=== PATIENT | female | born 1960 | race Caucasian/White ===

== ENCOUNTER 2018-12-15 16:38 | Emergency (ER) | payer MEDICARE ==
--- NOTE | 2018-12-15 17:13 | ED ---
General Adult HPI - General Chief complaint: Psychiatric Symptoms Stated complaint: Petition Time Seen by Provider: 12/15/18 17:00 Source: patient, RN notes reviewed, old records reviewed Mode of arrival: ambulatory Limitations: no limitations - History of Present Illness Initial comments: 58-year-old female presenting for psychiatric evaluation. Patient is under court order petitioned. She has history of paranoid schizophrenia. Petition was completed indicating that the patient has not bathed in weeks to months, she is not eating or drinking well, she is not taking care of her basic needs. Uncertain if she is compliant with her medication. 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 She has no physical complaints. She denies suicidal or homicidal ideation. - Related Data Home Medications Medication Instructions Recorded Confirmed Benztropine Mesylate [Cogentin] 0.5 mg PO DAILY 12/15/18 12/15/18 Minocycline HCl [Minocin] 100 mg PO DAILY 12/15/18 12/15/18 clonazePAM [KlonoPIN] 0.5 mg PO DAILY PRN 12/15/18 12/15/18 fluPHENAZine [Prolixin 1MG] 1 mg PO DAILY 12/15/18 12/15/18 traZODone HCL 50 mg PO HS 12/15/18 12/15/18 Allergies Allergy/AdvReac Type Severity Reaction Status Date / Time No Known Allergies Allergy Verified 12/15/18 18:11 Review of Systems ROS Statement: Those systems with pertinent positive or pertinent negative responses have been documented in the HPI. ROS Other: All systems not noted in ROS Statement are negative. Past Medical History Past Medical History: No Reported History History of Any Multi-Drug Resistant Organisms: None Reported Past Surgical History: No Surgical Hx Reported Past Psychological History: Depression, Schizoaffective Disorder, Schizophrenia Smoking Status: Never smoker Past Alcohol Use History: None Reported Past Drug Use History: None Reported General Exam Limitations: no limitations General appearance: alert, in no apparent distress Head exam: Present: atraumatic, normocephalic Eye exam: Present: normal appearance, PERRL ENT exam: Present: mucous membranes dry Neck exam: Present: normal inspection. Absent: tenderness, meningismus Respiratory exam: Present: normal lung sounds bilaterally. Absent: respiratory distress Cardiovascular Exam: Present: regular rate, normal rhythm GI/Abdominal exam: Present: soft. Absent: distended, tenderness, guarding Neurological exam: Present: alert, oriented X3. Absent: motor sensory deficit Psychiatric exam: Absent: homicidal ideation, suicidal ideation Skin exam: Present: warm, rash (Seborrheic dermatitis) Course Vital Signs 12/15/18 12/15/18 12/16/18 16:56 17:25 03:31 Temperature 97.9 F 98.1 F Pulse Rate 112 H 94 77 Respiratory 16 16 18 Rate Blood Pressure 141/90 121/79 105/62 O2 Sat by Pulse 97 100 96 Oximetry 12/16/18 12/16/18 06:11 08:49 Temperature 98.6 F Pulse Rate 77 87 Respiratory 18 18 Rate Blood Pressure 105/62 111/67 O2 Sat by Pulse 97 97 Oximetry - Reevaluation(s) Reevaluation #1: 12/16/18 00:47 I did complete a clinical certification on this patient for the need for inpatient psychiatric evaluation and treatment. Patient is resting comfortably in the emergency department awaiting final disposition. Medical Decision Making - Medical Decision Making Patient's care was signed out to oncoming physician. Review the medical record does appear that this patient was transferred to psychiatric facility. - Lab Data Result diagrams: 12/15/18 22:10 12/15/18 22:10 Lab Results 12/15/18 12/15/18 12/16/18 Range/Units 22:10 22:10 03:30 WBC 6.4 (3.8-10.6) k/uL RBC 4.71 (3.80-5.40) m/uL Hgb 14.2 (11.4-16.0) gm/dL Hct 42.8 (34.0-46.0) % MCV 90.8 (80.0-100.0) fL MCH 30.1 (25.0-35.0) pg MCHC 33.2 (31.0-37.0) g/dL RDW 12.7 (11.5-15.5) % Plt Count 198 (150-450) k/uL Sodium 142 (137-145) mmol/L Potassium 4.1 (3.5-5.1) mmol/L Chloride 104 (98-107) mmol/L Carbon Dioxide 29 (22-30) mmol/L Anion Gap 9 mmol/L BUN 16 (7-17) mg/dL Creatinine 0.70 (0.52-1.04) mg/dL Est GFR (CKD-EPI)AfAm >90 (>60 ml/min/1.73 sqM) Est GFR (CKD-EPI)NonAf >90 (>60 ml/min/1.73 sqM) Glucose 98 (74-99) mg/dL Calcium 10.4 H (8.4-10.2) mg/dL Total Bilirubin 0.7 (0.2-1.3) mg/dL AST 28 (14-36) U/L ALT 15 (9-52) U/L Alkaline Phosphatase 55 (38-126) U/L Total Protein 7.7 (6.3-8.2) g/dL Albumin 5.0 (3.5-5.0) g/dL Urine Color Urine Appearance (Clear) Urine pH (5.0-8.0) Ur Specific [place] (1.001-1.035) Urine Protein (Negative) Urine Glucose (UA) (Negative) Urine Ketones (Negative) Urine Blood (Negative) Urine Nitrite (Negative) Urine Bilirubin (Negative) Urine Urobilinogen (<2.0) mg/dL Ur Leukocyte Esterase (Negative) Urine RBC (0-5) /hpf Urine WBC (0-5) /hpf Ur Squamous Epith Cells (0-4) /hpf Urine Opiates Screen Not Detected (NotDetected) Ur Oxycodone Screen Not Detected (NotDetected) Urine Methadone Screen Not Detected (NotDetected) Ur Propoxyphene Screen Not Detected (NotDetected) Ur Barbiturates Screen Not Detected (NotDetected) U Tricyclic Antidepress Not Detected (NotDetected) Ur Phencyclidine Scrn Not Detected (NotDetected) Ur Amphetamines Screen Not Detected (NotDetected) U Methamphetamines Scrn Not Detected (NotDetected) U Benzodiazepines Scrn Not Detected (NotDetected) Urine Cocaine Screen Not Detected (NotDetected) U Marijuana (THC) Screen Not Detected (NotDetected) 12/16/18 Range/Units 03:30 WBC (3.8-10.6) k/uL RBC (3.80-5.40) m/uL Hgb (11.4-16.0) gm/dL Hct (34.0-46.0) % MCV (80.0-100.0) fL MCH (25.0-35.0) pg MCHC (31.0-37.0) g/dL RDW (11.5-15.5) % Plt Count (150-450) k/uL Sodium (137-145) mmol/L Potassium (3.5-5.1) mmol/L Chloride (98-107) mmol/L Carbon Dioxide (22-30) mmol/L Anion Gap mmol/L BUN (7-17) mg/dL Creatinine (0.52-1.04) mg/dL Est GFR (CKD-EPI)AfAm (>60 ml/min/1.73 sqM) Est GFR (CKD-EPI)NonAf (>60 ml/min/1.73 sqM) Glucose (74-99) mg/dL Calcium (8.4-10.2) mg/dL Total Bilirubin (0.2-1.3) mg/dL AST (14-36) U/L ALT (9-52) U/L Alkaline Phosphatase (38-126) U/L Total Protein (6.3-8.2) g/dL Albumin (3.5-5.0) g/dL Urine Color Yellow Urine Appearance Clear (Clear) Urine pH 5.0 (5.0-8.0) Ur Specific [place] 1.011 (1.001-1.035) Urine Protein Negative (Negative) Urine Glucose (UA) Negative (Negative) Urine Ketones 1+ H (Negative) Urine Blood Negative (Negative) Urine Nitrite Negative (Negative) Urine Bilirubin Negative (Negative) Urine Urobilinogen <2.0 (<2.0) mg/dL Ur Leukocyte Esterase Moderate H (Negative) Urine RBC 1 (0-5) /hpf Urine WBC 16 H (0-5) /hpf Ur Squamous Epith Cells <1 (0-4) /hpf Urine Opiates Screen (NotDetected) Ur Oxycodone Screen (NotDetected) Urine Methadone Screen (NotDetected) Ur Propoxyphene Screen (NotDetected) Ur Barbiturates Screen (NotDetected) U Tricyclic Antidepress (NotDetected) Ur Phencyclidine Scrn (NotDetected) Ur Amphetamines Screen (NotDetected) U Methamphetamines Scrn (NotDetected) U Benzodiazepines Scrn (NotDetected) Urine Cocaine Screen (NotDetected) U Marijuana (THC) Screen (NotDetected) Disposition Clinical Impression: Psychosis, Chronic schizophrenia Disposition: TRANSFER TO PSYCH HOSP/UNIT Condition: Stable Is patient prescribed a controlled substance at d/c from ED?: No Referrals: Edilson Pastrana MD [Primary Care Provider] - 1-2 days - Out of Hospital Transfer - Req. Specs Out of Hospital Transfer - Requested Specifics: Psychiatric Non-ICU (Transfer for inpatient psychiatric treatment and evaluation)
[2018-12-15 22:18] LABS: HCT 42.8 % (34.0-46.0); HGB 14.2 gm/dL (11.4-16.0); MCH 30.1 pg (25.0-35.0); MCHC 33.2 g/dL (31.0-37.0); MCV 90.8 fL (80.0-100.0); Mean Platelet Volume 6.8; Platelet Count 198 k/uL (150-450); RBC 4.71 m/uL (3.80-5.40); RDW 12.7 % (11.5-15.5); WBC 6.4 k/uL (3.8-10.6)
[2018-12-15 22:31] LABS: ALT 15 U/L (9-52); AST 28 U/L (14-36); Alkaline Phosphatase 55 U/L (38-126); Anion Gap 9 mmol/L; Blood Urea Nitrogen 16 mg/dL (7-17); Calcium 10.4 mg/dL (8.4-10.2); Carbon Dioxide 29 mmol/L (22-30); Chloride 104 mmol/L (98-107); Glucose 98 mg/dL (74-99); Potassium 4.1 mmol/L (3.5-5.1); Sodium 142 mmol/L (137-145); Total Bilirubin 0.7 mg/dL (0.2-1.3); Total Protein 7.7 g/dL (6.3-8.2)
[2018-12-16 03:32] VITALS: RESP 18
[2018-12-16 04:07] LABS: Appearance,Urine Clear (Clear); Bilirubin,Urine Negative (Negative); Blood,Urine Negative (Negative); Color,Urine Yellow; Glucose,Urine (UA) Negative (Negative); Ketones,Urine 1+ (Negative); Leukocyte Esterase,Urine Moderate (Negative); Nitrite,Urine Negative (Negative); Protein,Urine Negative (Negative); RBC,Urine 1 /hpf (0-5); Specific Gravity,Urine 1.011 (1.001-1.035); Squamous Epithelial Cell,Urine <1 /hpf (0-4); Urobilinogen,Urine <2.0 mg/dL (<2.0); WBC,Urine 16 /hpf (0-5)
[2018-12-16 04:14] LABS: Amphetamine Screen,Urine Not Detected (NotDetected); Barbiturate Screen,Urine Not Detected (NotDetected); Benzodiazepines Screen,Urine Not Detected (NotDetected); Cocaine Screen,Urine Not Detected (NotDetected); Methadone Screen, Urine Not Detected (NotDetected); Opiate Screen,Urine Not Detected (NotDetected); Oxycodone Screen, Urine Not Detected (NotDetected); Phencyclidine Screen,Urine Not Detected (NotDetected); Tricyclic Antidepressant,Urine Not Detected (NotDetected); Urn Cannabinoid Scrn Not Detected (NotDetected)
[2018-12-16 08:51] VITALS: BP 111/67; PULSE 87; TEMP 98.6
== END 2018-12-16 08:51 ==
LOC: EC 16:38
DX: F25.9 Schizoaffective disorder, unspecified (principal); F32.9 Major depressive disorder, single episode, unspecified; Z79.899 Other long term (current) drug therapy
CPT/HCPCS: 36415; 80053; 80306; 81001; 85027; 99285

== ENCOUNTER → 2022-04-07 | Outpatient (CLI) | payer MEDICARE ==
[2022-04-07 18:08] LABS: Basophils # (A) 0.04 X 10*3/uL (0.00-0.10); Basophils % (A) 0.6 %; Eosinophils # (A) 0.05 X 10*3/uL (0.04-0.35); Eosinophils % (A) 0.7 %; HCT 39.9 % (37.2-46.3); HGB 13.1 g/dL (12.0-15.0); Immature Grans, Automated 0.3 %; Lymphocytes # (A) 1.04 X 10*3/uL (0.90-5.00); Lymphocytes % (A) 15.5 %; MCH 30.6 pg (27.0-32.0); MCHC 32.8 g/dL (32.0-37.0); MCV 93.2 fL (80.0-97.0); Mean Platelet Volume 9.8 fL (9.5-12.2); Monocytes # (A) 0.51 X 10*3/uL (0.20-1.00); Monocytes % (A) 7.6 %; NRBC Per 100 WBC 0 /100 WBCS (0.0-0.0); Neutrophils # (A) 5.03 X 10*3/uL (1.80-7.70); Neutrophils % (A) 75.3 %; Platelet Count 192 X 10*3/uL (140-440); RBC 4.28 X 10*6/uL (4.10-5.20); WBC 6.69 X 10*3/uL (4.50-10.00)
[2022-04-07 18:45] LABS: African American GFR (CKD) 69.4 (60.0-200.0); Anion Gap 8.5 mmol/L (10.00-18.00); Calcium 9.3 mg/dL (8.7-10.3); Carbon Dioxide 30.5 mmol/L (20.0-27.5); Non-African American GFR(CKD) 59.9 (60.0-200.0); Potassium 4.5 mmol/L (3.5-5.5)
[2022-04-08 01:22] LABS: Appearance,Urine Turbid (Clear); Bacteria,Urine Trace /HPF (None Seen); Bilirubin,Urine Negative (Negative); Blood,Urine Large (Negative); Calcium Oxalate Crystals,Urine Present /LPF (None Seen); Color,Urine Orange (Yellow); Ketones,Urine Negative (Negative); Nitrite,Urine Negative (Negative); Specific Gravity,Urine 1.017 (1.001-1.030); Urobilinogen,Urine 0.2 (0.2,1.0)
== END | disposition home or self-care (01) ==
LOC: LABPAT 11:00
PROVIDERS: ATTEND Urology
DX: Z01.812 Encounter for preprocedural laboratory examination (principal); N20.1 Calculus of ureter
CPT/HCPCS: 80048; 81001; 85025; 87086

== ENCOUNTER 2022-04-14 12:12 | Day surgery (SDC) | payer MEDICARE ==
[2022-04-09 14:16] VITALS: BMI 20.8
[~2022-04-14 12:12] MED LIST: DEXAMETHASONE SOD PHOSPHATE 4 MG/ML 1 ML VIAL IV ONE; HYDROmorphone 0.5 MG/0.5 ML SYRINGE IVP PRN; LACTATED RINGERS 1,000 ML IV SCH; LIDOCAINE 1% (10MG/ML) FOR IV START INTRADERMA PRN; MIDAZOLAM 2 MG/2 ML VIAL IV PRN; ONDANSETRON 4 MG/2 ML VIAL IVP ONE
--- NOTE | 2022-04-14 12:35 | P.HPIHPCON ---
History of Present Illness H&P Date: 04/14/22 Chief Complaint: Left ureteral stone This is a 61-year-old male with history of a 7 mm left-sided proximal stone, status post stent insertion. Presents today for left-sided ureteroscopy with holmium laser. Discussed with her the risk of surgery which includes but not limited to bleeding, infection, injury to the ureter. Risk of anesthesia was also discussed with her. She understood all the risk and agreed to proceed Consent for Procedure: I have explained the operation/procedure to the patient, including the risks, benefits, side effects, alternative therapies (including not receiving the proposed treatment or service), the likelihood of the patient achieving his/her goals, and potential recuperation problems for the procedure/sedation/analgesia, as well as any blood products, if indicated. I also explained to the patient the risks, benefits and side effects of the alternatives, as well as the risks related to not receiving the proposed procedure, care, treatment, or services. Past Medical History Past Medical History: Asthma, Hyperlipidemia Additional Past Medical History / Comment(s): hx migraines, kidney stones, constipation, pt states "urinary infection but Dr Pastrana said not bacterial and no antibiotics needed", History of Any Multi-Drug Resistant Organisms: None Reported Past Surgical History: No Surgical Hx Reported Additional Past Surgical History / Comment(s): cystoscopy with left stent 03/17/22 at [facility] Past Anesthesia/Blood Transfusion Reactions: No Reported Reaction Smoking Status: Never smoker - Past Family History Mother Family Medical History: Cancer Father Family Medical History: Cancer Medications and Allergies Home Medications Medication Instructions Recorded Confirmed Type Benztropine Mesylate [Cogentin] 0.5 mg PO 0 12/15/18 04/09/22 History Minocycline HCl [Minocin] 100 mg PO DAILY 12/15/18 04/09/22 History ARIPiprazole [Abilify] 20 mg PO 0 04/09/22 04/09/22 History Albuterol Inhaler [Ventolin Hfa 1 puff INHALATION DIRECTED PRN 04/09/22 04/09/22 History Inhaler] traZODone HCL 100 mg PO 0 04/09/22 04/09/22 History Allergies Allergy/AdvReac Type Severity Reaction Status Date / Time No Known Allergies Allergy Verified 04/09/22 14:04 Surgical - Exam - General no distress, no pain - Eyes normal ocular movement, no pale - ENT normal nares, normal mucosa - Respiratory normal expansion, normal respiratory effort Assessment and Plan Assessment: OR for left-sided ureteroscopy, holmium laser lithotripsy, stone basketing and stent removal
--- NOTE | 2022-04-14 12:54 | XR ---
EXAMINATION TYPE: XR KUB DATE OF EXAM: 04/14/2022 Comparison: None Clinical History: 61-year-old female presurgical evaluation, N200 Findings: Left ureteral stent is present. Numerous pelvic phlebolith. A safety pin projects at the right upper pelvis. Nonobstructive bowel gas pattern. Mild stool burden. Air extends distally to the rectum. Supi ne imaging limited for assessment of free air. Impression: Left-sided ureteral stent. Numerous pelvic phleboliths. Nonobstructive bowel gas pattern.
[2022-04-14 13:05] VITALS: TEMP 98.1
[2022-04-14] MEDS ORDERED: ONDANSETRON 4 MG/2 ML VIAL IVP ONE (13:12)
[2022-04-14] MEDS ORDERED: DEXAMETHASONE SOD PHOSPHATE 4 MG/ML 1 ML VIAL IVP ONE (13:13)
[2022-04-14] MEDS ORDERED: LIDOCAINE 2% INJ 20 MG/ML (2 ML VIAL) ONE (13:43)
[2022-04-14] MEDS ORDERED: fentaNYL (PF) 50 MCG/ML 2 ML AMP ONE (13:43)
[2022-04-14] MEDS ORDERED: PROPOFOL 10 MG/ML 20 ML VIAL IV ONE (13:43)
[2022-04-14 15:02] VITALS: RESP 16
--- NOTE | 2022-04-14 15:02 | P.OP ---
Date of Procedure: 04/14/22 Preoperative Diagnosis: Left ureteral stone Postoperative Diagnosis: Same Procedure(s) Performed: Cystoscopy, left ureteroscopy, holmium laser lithotripsy, stone basketing and stent removal Implants: none Anesthesia: [place] Surgeon: Ashok Lake Estimated Blood Loss (ml): 1 Pathology: other (left ureteral stone) Condition: stable Disposition: PACU Indications for Procedure: This is a 61-year-old male with history of a 7 mm left-sided proximal stone, status post stent insertion. Presents today for left-sided ureteroscopy with holmium laser. Discussed with her the risk of surgery which includes but not limited to bleeding, infection, injury to the ureter. Risk of anesthesia was also discussed with her. She understood all the risk and agreed to proceed Operative Findings: Left-sided proximal ureteral stone Description of Procedure: Patient brought to the operating room, general anesthesia was induced. She was prepped and draped in sterile fashion and placed in dorsal lithotomy position. Attention was then carried to the left ureteral orifice, the stent was grasped and removed. Next a semirigid ureteroscope was inserted through the urethra and advanced up the left ureteral orifice. The ureteroscope was advanced all the way up to the proximal ureter which at that time a stone was encountered. Using the holmium laser the stone was fragmented into small fragments, sizable frag ments were removed and sent to for analysis. At this time pullback ureteroscopy was performed showed no injury to the ureter or any sizable fragments. As ureteroscope was withdrawn and a sensor was advanced through. Next under fluoroscopy 1113 [place] access sheath was passed over the wire and into the proximal ureter. Next a flexible ureteroscope was inserted through the access sheath, renoscopy was performed which showed no additional stones within the kidney. pull back ureteroscopy was performed which showed no injury to the ureter or any sizable fragments. There was no injury to the ureter or ureteral edema thus a stent was not placed. The bladder was emptied at the end of the case. Patient tolerated the procedure well and was taken to recovery in stable condition
[2022-04-14 15:52] VITALS: BP 153/79; PULSE 65
--- NOTE | 2022-04-14 18:24 | FL ---
EXAMINATION TYPE: FL guidance operating room DATE OF EXAM: 04/14/2022 FLUOROSCOPY Fluoroscopy time of 12 seconds was used during urologic intervention for left ureteral stone. 1 i mage/s document/s the procedure.
== END 2022-04-14 16:33 | disposition home or self-care (01) ==
LOC: OR 12:12
PROVIDERS: ATTEND Urology
DX: N20.2 Calculus of kidney with calculus of ureter (principal); E78.5 Hyperlipidemia, unspecified; J45.909 Unspecified asthma, uncomplicated; G43.909 Migraine, unspecified, not intractable, without status migrainosus; F25.9 Schizoaffective disorder, unspecified; K59.00 Constipation, unspecified; Z46.6 Encounter for fitting and adjustment of urinary device; F32.9 Major depressive disorder, single episode, unspecified; Z87.898 Personal history of other specified conditions; Z80.9 Family history of malignant neoplasm, unspecified
CPT/HCPCS: 52353; 82365; 74018; C1769; J1100; J0690; J2405; J3010; J2704; J2001

== ENCOUNTER → 2023-01-30 | Day surgery (SDC) | payer MEDICARE ==
--- NOTE | 2023-01-30 12:22 | MM ---
Reason for Exam: Post Procedure Mammogram. Risk Values: Bess 5 year model risk: 1.1%. NCI Lifetime model risk: 4.3%. Tissue Density: Right: The breast tissue is heterogeneously dense. This may lower the sensitivity of mammography. Overall Assessment: Post procedure mammogram for marker placement Management: Post Mammogram for Matthew Placement of the right breast. Electronically signed and approved by: Erick Aguilar DO
--- NOTE | 2023-01-30 12:23 | USB ---
Risk Values: Bess 5 year model risk: 1.1%. NCI Lifetime model risk: 4.3%. Pathology Description: Location: upper outer quadrant, axillary tail. Marker Left Behind. Needle Type: Bard 14g x 10cm Cores: 2 this is the larger lesion. Pathology Results: Results pending. Electronically signed and approved by: Erick Aguilar DO
--- NOTE | 2023-02-05 09:44 | USB ---
Risk Values: Bess 5 year model risk: 1.3%. NCI Lifetime model risk: 5.1%. Pathology Description: Location: upper outer quadrant, axillary tail. Marker Left Behind. Needle Type: Bard 14g x 10cm Cores: 3 The procedure of ultrasound guided core biopsy was explained to the patient. Benefits, alternatives, and risks were discussed. An informed consent was then obtained. A time out was performed. The patient was placed in supine positioning for imaging and for the procedure. The overlying skin was prepped and draped in usual sterile fashion. 5 ml 1% lidocaine was used as anesthetic into the skin and subcutaneous tissue up to area of concern in the right axilla. Under ultrasound guidance, a 18-gauge biopsy gun device was used to obtain 3 core samples of suspected lymph node. Following this, a coil biopsy clip was left in the lesion. Next, Under ultrasound guidance, a 14-gauge biopsy gun device was used to obtain 2 core samples of suspected mass protruding from the skin. Following this, a butterfly biopsy clip was left in the lesion. A post procedure mammogram was performed, clip seen and correlates with the mammographic finding. The patient tolerated the procedure well without any immediate complication. The patient was discharged home in stable condition. Impression: Successful, uncomplicated ultrasound guided core biopsy of area of concern in the right breast. PATHOLOGY STATUS: Results pending. Pathology Results: Result: Malignant. A. RIGHT AXILLA #1 LARGER, NEEDLE CORE BIOPSY: Invasive moderately differentiated ductal carcinoma (Grade 2). See Surgical Pathology Cancer Case Summary and Comment. B. RIGHT AXILLA #2, SMALLER, NEEDLE CORE BIOPSY: Invasive moderately differentiated ductal carcinoma (Grade 2), focally involving lymph node tissue. See Surgical Pathology Cancer Case Summary and Comment. Overall Assessment: Malignant Management: Surgical Consultation of the right breast. Electronically signed and approved by: Erick Aguilar DO
== END ==
LOC: RADUSWWP 09:51
PROVIDERS: ATTEND Surgery
DX: R92.8 Other abnormal and inconclusive findings on diagnostic imaging of breast (principal); C50.911 Malignant neoplasm of unspecified site of right female breast
CPT/HCPCS: 88305; 88342; 88341; 77065; 19083; 19084; A4648

== ENCOUNTER → 2023-02-20 | Outpatient (CLI) | payer MEDICARE ==
[2023-02-20 09:43] VITALS: BP 128/82; PULSE 73; RESP 18; TEMP 98.2
--- NOTE | 2023-02-20 10:34 | P.GSHP ---
History of Present Illness H&P Date: 02/20/23 Chief Complaint: right breast invasive ductal cancer Alice is a 62 year old whtie female seen in consuotation for Dr. Pastrana regarding a biopsy proven right breast cancer. She underwent a bilateral mammogram on 01-01-23 which was personally reviewed with DR. Sheffield. This showed a 2.4 cm mass with adjacent adenopathy on the right axillary region of hte breast. She had a ultrasound confirming this on the same date. She had a core biopsy of the right axillary lesion and a node on 01-30-23. Pathology revealed an invasive ductal cancer, G2 ER+(91-100%), NH+ (61-70%), Her2-. She notes a lump in her right axilla since April 2020. She did not pursue that secondary to COVID at the time. She recently pursued this. She had never had surgery on her breast. She is not complaining of any trauma or infection of the breast. Caffiene: 1 cup.day nicotine: none chocolate: daily Family History: mother: breast cancer at 76 father: cancer ? type two brothers with prostate cancer paternal grandmother: tumor on her hip cancer Hormonal History: menarche: 12 G0 menopause: 48 hormones: none BCP: used them for about 6 years Surgical History: kidney stone Medical History: skizophrenia (diagnosed since 31, lives independently) depression Social History: nicotine: none alcohol: occasional drugs: none - Constitutional Constitutional: Denies chills, Denies fever - EENT Eyes: denies blurred vision, denies pain Ears: deny: decreased hearing, tinnitus Ears, nose, mouth and throat: Denies headache, Denies sore throat - Breasts Breasts: bilateral: as per HPI - Cardiovascular Cardiovascular: Denies chest pain, Denies shortness of breath - Respiratory Respiratory: Denies cough, Denies 7 - Gastrointestinal Gastrointestinal: Denies abdominal pain, Denies diarrhea, Denies nausea, Denies vomiting - Genitourinary (Female) Genitourinary: Reports kidney stones - Menstruation Menstruation: Reports postmenopausal - Musculoskeletal Musculoskeletal: Denies myalgias - Integumentary Comment: dry skin Integumentary: Denies pruritus, Denies rash - Neurological Neurological: Denies numbness, Denies weakness - Psychiatric Psychiatric: Reports as per HPI - Endocrine Endocrine: Reports fatigue, Denies weight change - Hematologic/Lymphatic Comment: none - Allergic/Immunologic Allergic/Immunologic: Reports seasonal allergies Past Medical History Past Medical History: No Reported History Additional Past Medical History / Comment(s): hx migraines, kidney stones History of Any Multi-Drug Resistant Organisms: None Reported Past Surgical History: No Surgical Hx Reported Additional Past Surgical History / Comment(s): cystoscopy with left stent 03/17/22 at [facility] Past Anesthesia/Blood Transfusion Reactions: No Reported Reaction Past Psychological History: Depression, Schizoaffective Disorder, Schizophrenia Smoking Status: Never smoker Past Alcohol Use History: None Reported Past Drug Use History: None Reported - Past Family History Mother Family Medical History: Cancer Father Family Medical History: Cancer Medications and Allergies Home Medications Medication Instructions Recorded Confirmed Type Benztropine Mesylate [Cogentin] 0.5 mg PO 1630 12/15/18 02/20/23 History Minocycline HCl [Minocin] 100 mg PO DAILY 12/15/18 02/20/23 History ARIPiprazole [Abilify] 20 mg PO 1630 04/09/22 02/20/23 History Albuterol Inhaler [Ventolin Hfa 1 puff INHALATION DIRECTED PRN 04/09/22 02/20/23 History Inhaler] traZODone HCL 100 mg PO 1630 04/09/22 02/20/23 History Cholecalciferol (Vitamin D3) 1,250 mcg PO DAILY 02/20/23 02/20/23 History [Vitamin D3] Allergies Allergy/AdvReac Type Severity Reaction Status Date / Time No Known Allergies Allergy Verified 02/20/23 09:36 Surgical - Exam Vital Signs Temp Pulse Resp BP Pulse Ox 98.2 F 73 18 128/82 96 02/20/23 09:39 02/20/23 09:39 02/20/23 09:39 02/20/23 09:39 02/20/23 09:39 - General no distress - Eyes normal ocular movement - ENT no hearing loss - Neck trachea midline - Respiratory normal respiratory effort - Cardiovascular Heart Sounds: normal: S1, S2 - Abdomen Abdomen: soft, non tender, no guarding, no rigid, no rebound - Integumentary hair on chin, dry skin - Neurologic no disoriented, no combative - Musculoskeletal normal gait, normal posture - Psychiatric oriented to time, oriented to person, oriented to place, speech is normal, memory intact Breast Exam: BRA: 34B Inspection: Right breast smaller than left breast, right axillary skin lesion protruding close to the skin, right nipple inversion Left breast nipple grade 2 ptosis Palpation: Right breast: Multiple positional exam fibroglandular changes in the axillary region is approximately 2.5 cm area of firmness protruding close to the skin, this is not attached to the chest wall, there is some question as to whether there is a second lesion contiguous with the tumor or this represents an axillary lymph node Right axilla: Positive adenopathy small nodule as well as second lesion which was most likely the biopsied lesion in close proximity to the tumor Left breast: Multiple positional exam fibrocystic changes no dominant masses or nodules of concern Left axilla: No adenopathy of concern Results Mammogram and ultrasound reviewed in person with Dr. eFnton; lesion in the right breast is approximately 2.5 cm, 1 possibly 2 axillary lymph nodes of concern Pathology report reviewed Pathology reveals right axillary lesion as well as right axillary lymph node biopsied these revealed invasive moderately differentiated ductal carcinoma, G2, ER positive, NH positive, HER-2 negative Assessment and Plan Assessment: Impression: Right breast invasive ductal carcinoma with axillary node involvement Schizophrenia Plan: Presentation of case at tumor board Oncotype Follow-up after presentation of case at tumor board Appointment medical oncology CC: Dr. Pastrana
== END ==
LOC: WWCWWP 08:30
PROVIDERS: ATTEND Surgery
DX: R92.8 Other abnormal and inconclusive findings on diagnostic imaging of breast (principal); C50.911 Malignant neoplasm of unspecified site of right female breast; F32.A Depression, unspecified; G43.909 Migraine, unspecified, not intractable, without status migrainosus; F20.9 Schizophrenia, unspecified; Z17.0 Estrogen receptor positive status [ER+]; Z80.3 Family history of malignant neoplasm of breast

== ENCOUNTER → 2023-02-28 | Outpatient (CLI) | payer MEDICARE ==
--- NOTE | 2023-03-01 09:12 | PE ---
EXAMINATION TYPE: PET CT fusion skull to thigh DATE OF EXAM: 02/28/2023 CLINICAL INDICATION:Female, 62 years old with history of C50.611 Breast Ca; TECHNIQUE: Following the intravenous administration of 9.6 mCi of F-18 FDG, whole body images are p erformed from the skull base to the midthigh. Images are reviewed on the computer in the coronal, ax ial, and sagittal planes. Reconstructed rotating images are created on independent workstation and r eviewed on the computer. A non-contrast CT is performed in conjunction with the PET scan. Glucose l evel 87 mg/dL COMPARISON: CT None, PET/CT None, mammogram 01/30/2023 ultrasound 01/30/2023. FINDINGS: Mediastinal SUV mean is 1.8. Hepatic parenchyma SUV mean is 2.2. SKULL BASE AND NECK: No suspicious radiotracer activity. CHEST, MEDIASTINUM, AND HILAR REGION: Right breast mass measuring Max SUV 4.4 measuring 2.1 x 1.5 cm. In extension towards the axilla is felt to represent enlarged lymph node versus fingerlike extension of the mass. SUV 4.1 measuring 9 mm. ABDOMEN AND PELVIS: No suspicious radiotracer activity. MUSCULOSKELETAL STRUCTURES: No suspicious radiotracer activity. OTHER CT: Atherosclerosis of the arterial vasculature is minimal. There is a large cystic structure w ithin the pelvis measuring up to 17.6 x 9.2 x 19.5 cm. Scoliosis changes to the spine. Multilevel deg eneration changes of the spine. Tortuous vessels are seen along the anterior right thigh. Mild centrilobular emphysema changes throug hout the lungs. IMPRESSION: 1. Primary right breast malignancy with suspected immediately adjacent lymph node versus extension o f the mass. No additional evidence for metastatic disease. 2. Large abdominal cystic structure felt to be arising from the pelvis possibly ovarian in etiology. Further workup and evaluation recommended. Finding could represent ovarian cystic neoplasm.
== END | disposition home or self-care (01) ==
LOC: RADPETMAIN 12:51
PROVIDERS: ATTEND Internal Medicine Hematology & Oncology
DX: C50.611 Malignant neoplasm of axillary tail of right female breast (principal)
CPT/HCPCS: 78815; A9552

== ENCOUNTER → 2023-09-03 | Outpatient (CLI) | payer MEDICARE ==
--- NOTE | 2023-09-03 12:10 | P.PN ---
Subjective Progress Note Date: 09/03/23 Principal diagnosis: right breast invasive ductal cancer The patient's case was presented at tumor board on 8123 Recommendations: Medical oncology referral Oncotype DX Neoadjuvant endocrine therapy versus neoadjuvant chemotherapy Breast MRI Genetics: Patient declined The patient was called with these recommendations. The MRI is being scheduled. The patient is being scheduled to follow with medical oncology. The patient will follow repair after the above History of Present Illness H&P Date: 02/20/23 Chief Complaint: right breast invasive ductal cancer Alice is a 62 year old white female seen in consultation for Dr. Pastrana regarding a biopsy proven right breast cancer. She underwent a bilateral mammogram on 01-01-23 which was personally reviewed with DR. Sheffield. This showed a 2.4 cm mass with adjacent adenopathy on the right axillary region of hte breast. She had a ultrasound confirming this on the same date. She had a core biopsy of the right axillary lesion and a node on 01-30-23. Pathology revealed an invasive ductal cancer, G2 ER+(91-100%), MO+ (61-70%), Her2-. She notes a lump in her right axilla since April 2020. She did not pursue that secondary to COVID at the time. She had never had surgery on her breast. She is not complaining of any trauma or infection of the breast. PET scan 02-28-2023 Concern regarding an ovarian mass, patient on June 29 underwent removal of this mass. There was no cancer. The patient's case was presented at tumor board on 8123 Recommendations: Medical oncology referral; she has been taking annestrazole the tumor seems to have shrunk as per the patient ; last seen in May 2023 Oncotype DX: 19 Neoadjuvant endocrine Genetics: Patient declined The patient was called with these recommendations. The MRI is being scheduled. The patient is being scheduled to follow with medical oncology. Surgery scheduled for 2023 Caffiene: 1 cup.day nicotine: none chocolate: daily Family History: mother: breast cancer at 76 father: cancer ? type two brothers with prostate cancer paternal grandmother: tumor on her hip cancer Hormonal History: menarche: 12 G0 menopause: 48 hormones: none BCP: used them for about 6 years Surgical History: kidney stone removal of an ovarian cyst Medical History: skizophrenia (diagnosed since 31, lives independently) depression Social History: nicotine: none alcohol: occasional drugs: none - Constitutional Constitutional: Denies chills, Denies fever - EENT Eyes: denies blurred vision, denies pain Ears: deny: decreased hearing, tinnitus Ears, nose, mouth and throat: Denies headache, Denies sore throat - Breasts Breasts: bilateral: as per HPI - Cardiovascular Cardiovascular: Denies chest pain, Denies shortness of breath - Respiratory Respiratory: Denies cough - Gastrointestinal Gastrointestinal: Denies abdominal pain, Denies diarrhea, Denies nausea, Denies vomiting - Genitourinary (Female) Genitourinary: Reports kidney stones - Menstruation Menstruation: Reports postmenopausal - Musculoskeletal Musculoskeletal: Denies myalgias - Integumentary Comment: dry skin Integumentary: Denies pruritus, Denies rash - Neurological Neurological: Denies numbness, Denies weakness - Psychiatric Psychiatric: Reports as per HPI - Endocrine Endocrine: Reports fatigue, Denies weight change - Hematologic/Lymphatic Comment: none - Allergic/Immunologic Allergic/Immunologic: Reports seasonal allergies Past Medical History Past Medical History: No Reported History Additional Past Medical History / Comment(s): hx migraines, kidney stones History of Any Multi-Drug Resistant Organisms: None Reported Past Surgical History: No Surgical Hx Reported Additional Past Surgical History / Comment(s): cystoscopy with left stent 03/17/[address] [facility] Past Anesthesia/Blood Transfusion Reactions: No Reported Reaction Past Psychological History: Depression, Schizoaffective Disorder, Schizophrenia Smoking Status: Never smoker Past Alcohol Use History: None Reported Past Drug Use History: None Reported - Past Family History Mother Family Medical History: Cancer Father Family Medical History: Cancer Medications and Allergies Home Medications Medication Instructions Recorded Confirmed Type Benztropine Mesylate [Cogentin] 0.5 mg PO 1630 12/15/18 02/20/23 History Minocycline HCl [Minocin] 100 mg PO DAILY 12/15/18 02/20/23 History ARIPiprazole [Abilify] 20 mg PO 162904/09/22 02/20/23 History Albuterol Inhaler [Ventolin Hfa 1 puff INHALATION DIRECTED PRN 04/09/2201/25 History Inhaler] traZODone HCL 100 mg PO 162904/09/22 02/20/23 History Cholecalciferol (Vitamin D3) 1,250 mcg PO DAILY 02/20/23 02/20/23 History [Vitamin D3] Allergies Allergy/AdvReac Type Severity Reaction Status Date / Time No Known Allergies Allergy Verified 02/20/23 09:36 Objective - Constitutional General appearance: Present: cooperative - EENT Eyes: Present: EOMI ENT: Present: hearing grossly normal - Neck Neck: Present: normal ROM - Respiratory Respiratory: bilateral: CTA - Cardiovascular Heart sounds: normal: S1, S2 - Gastrointestinal General gastrointestinal: Present: soft - Integumentary Integumentary: Present: normal turgor - Musculoskeletal Musculoskeletal: Present: gait normal - Psychiatric Psychiatric: Present: A&O x's 3, appropriate affect, intact judgment & insight - Additional findings Additional findings: Breast Exam: BRA: 34B Inspection: Right breast smaller than left breast, right skin puckering upper outer quadrant right nipple inversion Left breast nipple grade 2 ptosis Palpation: Right breast: Multiple positional exam fibroglandular changes in the axillary r egion is approximately 2.5 cm area of firmness protruding close to the skin, this is not attached to the chest wall, there is some question as to whether there is a second lesion contiguous with the tumor or this represents an axillary lymph node; placed in size since her neoadjuvant hormone therapy Right axilla: High axillary adenopathy appears to have decreased since her hormone therapy Left breast: Multiple positional exam fibrocystic changes no dominant masses or nodules of concern Left axilla: No adenopathy of concern Assessment and Plan Assessment: Impression: Right breast invasive ductal carcinoma with axillary node involvement Schizophrenia Plan: repeat right breast mammogram and ultrasound Right breast lumpectomy, right sentinel node injection, right sentinel node biopsy, right axillary node needle localization of two nodes, resection of right axillary nodes were identified by needle localization, possible axillary node dissection right To the procedure were discussed with the patient. Risk include but are not limited to bleeding, infection, reaction to the anesthetic. The patient understands and wishes to proceed. She understands if the margins were to be positive then further tissue removal may be necessary. Risk of axillary surgery include but are not limited to lymphedema, decreased sensation to the inner arm, winged scapula. She understands and wishes to proceed. CC: Dr. Pastrana
[2023-09-03 13:04] VITALS: BP 111/67; PULSE 83; RESP 17; TEMP 98.1
== END ==
LOC: WWCWWP 10:48
PROVIDERS: ATTEND Surgery
DX: C50.911 Malignant neoplasm of unspecified site of right female breast (principal); F20.9 Schizophrenia, unspecified; F32.A Depression, unspecified; Z17.0 Estrogen receptor positive status [ER+]; Z80.3 Family history of malignant neoplasm of breast; Z87.442 Personal history of urinary calculi; Z98.890 Other specified postprocedural states

== ENCOUNTER → 2023-09-11 | Outpatient (CLI) | payer MEDICARE ==
--- NOTE | 2023-09-11 14:40 | USB ---
Reason for Exam: Additional evaluation requested from prior study. Patient History: Menarche at age 11. Patient has no children. Left ovary removed at age 63. Right ovary removed at age 63. Postmenopausal. Breast cancer, right, age 62. 01/30/2023, US breast needle core RT on the Right side. 01/30/2023, Malignant US breast needle core addl RT on the right side. Mother had breast cancer, age 75. Technique: Method: Whole Breast Handheld. Prior Study Comparison: 01/30/2023 Right MG diagnostic mammo RT wo CAD, [facility]. Findings: The whole breast of the right breast, the axilla of the right breast and the retroareolar of the right breast were scanned. A complete US of all four quadrants of the breast, axilla, and retro-areolar region were reviewed. 2 microclips are again noted in the right axilla and posterior upper outer quadrant at the site of previously biopsied neoplasm. In the axilla, there is residual 2.1 x 0.8 cm hypoechogenicity with microclip, likely site of treated/residual disease, significantly decreased in size from 2.1 x 1.9 x 1.5 cm, previously. The second area in the posterior upper outer quadrant shows no residual abnormality. No other solid or cystic lesion within the breast. Overall Assessment: Known biopsy proven malignancy, BI-RAD 6 Management: Surgical Consultation of the right breast. Electronically signed and approved by: Comfort Saenz M.D. Radiologist
[2023-09-11 15:07] VITALS: BP 134/84; PULSE 84; RESP 15; TEMP 98.2
--- NOTE | 2023-09-23 13:31 | MM ---
Reason for Exam: Known biopsy proven malignancy. Patient History: Menarche at age 11. Patient has no children. Left ovary removed at age 63. Right ovary removed at age 63. Postmenopausal. Breast cancer, right, age 62. 01/30/2023, US breast needle core RT on the Right side. 01/30/2023, Malignant US breast needle core addl RT on the right side. Mother had breast cancer, age 75. Prior Study Comparison: 01/30/2023 Right MG diagnostic mammo RT wo CAD, [facility]. Tissue Density: Right: The breast tissue is heterogeneously dense. This may lower the sensitivity of mammography. Findings: Analyzed By CAD. Previously biopsied irregular mass posterior upper upper quadrant right breast estimated to measure at least 2.8 cm containing a butterfly clip. Adjacent lymph node measuring 1.0 cm containing a coil clip. No other solid or cystic lesion is seen. Dense tissues are present. Overall Assessment: Incomplete: need additional imaging evaluation, BI-RAD 0 Management: Diagnostic Breast Ultrasound of the right breast. Electronically signed and approved by: Comfort Saenz M.D. Radiologist
== END ==
LOC: WWCWWP 12:50
PROVIDERS: ATTEND Surgery
DX: C50.911 Malignant neoplasm of unspecified site of right female breast (principal); Z78.0 Asymptomatic menopausal state; Z80.3 Family history of malignant neoplasm of breast; Z90.721 Acquired absence of ovaries, unilateral
CPT/HCPCS: 77065; 76641; G0279; 77061

== ENCOUNTER → 2023-09-11 | Outpatient (CLI) | payer MEDICARE | END | disposition home or self-care (01) | LOC: RADMAMWWP 13:05 | PROVIDERS: ATTEND Surgery | DX: Z53.9 Procedure and treatment not carried out, unspecified reason (principal) ==

== ENCOUNTER → 2023-09-24 | Outpatient (CLI) | payer MEDICARE ==
[2023-09-24 14:57] VITALS: BP 108/75; PULSE 88; RESP 15; TEMP 97.8
--- NOTE | 2023-09-24 14:57 | P.PN ---
Progress Note - Text Progress Note Date: 09/24/23 Alice is status post a right breast lumpectomy and AND on 09-22-23. Postoperatively she has done well. A EBONI drain was in place which has minimal drainage. This is removed today. Pathology is pending Examination: Incision clean and dry Lungs: Clear Heart: Regular rate and rhythm Impression: Patient doing well postoperative Plan: Remove EBONI drain Follow-up next week Awaiting pathology CC: Dr. Pastrana
== END ==
LOC: WWCWWP 14:36
PROVIDERS: ATTEND Surgery
DX: Z04.89 Encounter for examination and observation for other specified reasons (principal); Z98.890 Other specified postprocedural states

== ENCOUNTER → 2023-10-22 | Outpatient (CLI) | payer MEDICARE ==
[2023-10-22 12:25] VITALS: BP 107/73; PULSE 99; RESP 16; TEMP 98
--- NOTE | 2023-10-22 12:32 | P.PN ---
Progress Note - Text Progress Note Date: 10/22/23 Alice is status post right breast lumpectomy and SNB on 09-22-23. Margins (-). Total tumor size 2.5 cm. New inferior margin (-). Anterior and posterior margins close, but on muscle posteriorly and skin taken anteriorly. Examination: Incision: Clean and dry Lungs: Clear Heart: Regular rate and rhythm Impression: Patient doing well postoperative Plan: Follow-up radiation oncology Follow-up medical oncology Follow-up here in 4 months CC: Dr. Pastrana
== END ==
LOC: WWCWWP 12:03
PROVIDERS: ATTEND Surgery
DX: Z85.3 Personal history of malignant neoplasm of breast (principal)

== ENCOUNTER → 2024-02-12 | Outpatient (CLI) | payer MEDICARE ==
--- NOTE | 2024-02-12 14:30 | P.PN ---
Subjective Progress Note Date: 02/12/24 09-11-23 Repeat right breast mammogram and ultrasound done on 09-11-23 these were personally reviewed with Dr. Roche. the tumor is less dense and the nodes seem to be smaller. She did not have an MRI. Breast mammogram and ultrasound discussed with the patient. Plan: Right breast lumpectomy, right sentinel node injection, right sentinel node biopsy, right axillary node needle localization of two nodes, resection of right axillary nodes were identified by needle localization, possible axillary node dissection right possible oncoplastic tissue transfer Original Note: Subjective Progress Note Date: 02-12-24 History of Present Illness H&P Date: Chief Complaint: right breast invasive ductal cancer Alice is a 63 year old white female seen in consultation for Dr. Pastrana regarding a biopsy proven right breast cancer. She underwent a bilateral mammogram on 01-01-23 which was personally reviewed with DR. Sheffield. This showed a 2.4 cm mass with adjacent adenopathy on the right axillary region of the breast. She had a ultrasound confirming this on the same date. She had a core biopsy of the right axillary lesion and a node on 01-30-23. Pathology revealed an invasive ductal cancer, G2 ER+(91-100%), SD+ (61-70%), Her2-. She noted a lump in her right axilla since April 2020. She did not pursue that secondary to COVID at the time. She had never had surgery on her breast. She is not complaining of any trauma or infection of the breast. Patient had debbi-adjuvant hormone therapy anastrazole lumpectomy and SNB on 09-22-23 two foci of residual IDC, 2.5 and .7 cm, focal involvement of skeletl muscle and inferior margin three axillary nodes (+) tumor she had re-escision and no further tumor at inferior margin, and three additionsl nodes all (-). started radiation on 01-05-24 finished on 02-09-24 she is not complaining of any new lumps masses or nodules of concern in either breast. PET scan 02-28-2023 Concern regarding an ovarian mass, patient on June 29 underwent removal of this mass. There was no cancer. Caffiene: 1 cup.day nicotine: none chocolate: daily Family History: mother: breast cancer at 76 father: cancer ? type two brothers with prostate cancer paternal grandmother: tumor on her hip cancer Hormonal History: menarche: 12 G0 menopause: 48 hormones: none BCP: used them for about 6 years Surgical History: kidney stone removal of an ovarian cyst Medical History: skizophrenia (diagnosed since 31, lives independently) depression Social History: nicotine: none alcohol: occasional drugs: none - Constitutional Constitutional: Denies chills, Denies fever - EENT Eyes: denies blurred vision, denies pain Ears: deny: decreased hearing, tinnitus Ears, nose, mouth and throat: Denies headache, Denies sore throat - Breasts Breasts: bilateral: as per HPI - Cardiovascular Cardiovascular: Denies chest pain, Denies shortness of breath - Respiratory Respiratory: Denies cough - Gastrointestinal Gastrointestinal: Denies abdominal pain, Denies diarrhea, Denies nausea, Denies vomiting - Genitourinary (Female) Genitourinary: Reports kidney stones - Menstruation Menstruation: Reports postmenopausal - Musculoskeletal Musculoskeletal: Denies myalgias - Integumentary Comment: dry skin Integumentary: Denies pruritus, Denies rash - Neurological Neurological: Denies numbness, Denies weakness - Psychiatric Psychiatric: Reports as per HPI - Endocrine Endocrine: Reports fatigue, Denies weight change - Hematologic/Lymphatic Comment: none - Allergic/Immunologic Allergic/Immunologic: Reports seasonal allergies Past Medical History Past Medical History: No Reported History Additional Past Medical History / Comment(s): hx migraines, kidney stones History of Any Multi-Drug Resistant Organisms: None Reported Past Surgical History: No Surgical Hx Reported Additional Past Surgical History / Comment(s): cystoscopy with left stent 03/17/22 at [facility] Past Anesthesia/Blood Transfusion Reactions: No Reported Reaction Past Psychological History: Depression, Schizoaffective Disorder, Schizophrenia Smoking Status: Never smoker Past Alcohol Use History: None Reported Past Drug Use History: None Reported - Past Family History Mother Family Medical History: Cancer Father Family Medical History: Cancer Medications and Allergies Home Medications Medication Instructions Recorded Confirmed Type Benztropine Mesylate [Cogentin] 0.5 mg PO 1630 12/15/18 02/20/23 History Minocycline HCl [Minocin] 100 mg PO DAILY 12/15/18 02/20/23 History ARIPiprazole [Abilify] 20 mg PO 1630 04/09/22 02/20/23 History Albuterol Inhaler [Ventolin Hfa 1 puff INHALATION DIRECTED PRN 04/09/22 02/20/23 History Inhaler] traZODone HCL 100 mg PO 0 04/09/22 02/20/23 History Cholecalciferol (Vitamin D3) 1,250 mcg PO DAILY 02/20/23 02/20/23 History [Vitamin D3] Allergies Allergy/AdvReac Type Severity Reaction Status Date / Time No Known Allergies Allergy Verified 02/20/23 09:36 Objective - Constitutional General appearance: Present: cooperative - EENT Eyes: Present: EOMI ENT: Present: hearing grossly normal - Neck Neck: Present: normal ROM - Respiratory Respiratory: bilateral: CTA - Cardiovascular Heart sounds: normal: S1, S2 - Integumentary Integumentary: Present: normal turgor - Musculoskeletal Musculoskeletal: Present: gait normal - Psychiatric Psychiatric: Present: A&O x's 3, appropriate affect, intact judgment & insight - Additional findings Additional findings: Breast Exam: BRA: 34B Inspection: rash over the right chest wall and breast felt to be related to radiation changes, right nipple inversion Left breast nipple grade 2 ptosis Palpation: Right breast: multiple positional exam well-healed scar breast and axilla no dominant masses or nodules of concern, the right nipple is inverted, there is some puckering of the medial aspect of the incision but no masses associated with this Right axilla: High axillary adenopathy appears to have decreased since her hormone therapy Left breast: Multiple positional exam fibrocystic changes no dominant masses or nodules of concern Left axilla: No adenopathy of concern Assessment and Plan Assessment: Impression: Right breast invasive ductal carcinoma with axillary node involvement, patient status post lumpectomy/axillary node resection/neoadjuvant hormone therapy/radiation therapy No evidence of recurrent cancer at this time Schizophrenia Plan: bilateral mammogram in 4 months with physician exam continue anastrozole Patient to follow up sooner if any questions or concerns Continue to follow with medical oncology Continue to follow with radiation oncology CC: Dr. Pastrana
[2024-02-12 14:32] VITALS: BP 119/76; PULSE 110; RESP 16; TEMP 97.8
== END ==
LOC: WWCWWP 13:33
PROVIDERS: ATTEND Surgery
DX: R22.2 Localized swelling, mass and lump, trunk (principal); F20.9 Schizophrenia, unspecified; Z80.3 Family history of malignant neoplasm of breast; Z85.3 Personal history of malignant neoplasm of breast; Z48.817 Encounter for surgical aftercare following surgery on the skin and subcutaneous tissue

== ENCOUNTER → 2024-06-14 | Outpatient (CLI) | payer MEDICARE ==
--- NOTE | 2024-06-14 09:55 | MM ---
Reason for Exam: Hx of breast cancer, conservation therapy. Patient History: Menarche at age 11. Patient has no children. Left ovary removed at age 63. Right ovary removed at age 63. Postmenopausal. Breast cancer, right, age 62. Breast cancer, right, age 63. Previous chest radiation therapy at age 64. Previous chemotherapy at age 64. 09/22/2023, Lumpectomy on the Right side. 09/22/2023, Malignant US breast localization RT on the right side. 01/30/2023, US breast needle core RT on the Right side. 01/30/2023, Malignant US breast needle core addl RT on the right side. Mother had breast cancer, age 75. Prior Study Comparison: 01/30/2023 Right MG diagnostic mammo RT wo CAD, [facility]. 09/11/2023 Right MG 3D diag mammo w/cad RT, [facility]. 09/11/2023 Right US breast RT, [facility]. 09/22/2023 Right MG diagnostic mammo RT wo CAD, [facility]. Tissue Density: The breasts are heterogeneously dense, which may obscure small masses. Findings: Analyzed By CAD. Postoperative changes of right-sided lumpectomy. No interval recurrent mass. No suspicious microcalcifications. No masses within the left breast identified. Overall Assessment: Benign, BI-RAD 2 Management: Diagnostic Mammogram of both breasts in 6 months. . Results were given to the patient verbally at the time of exam. Patient should continue monthly self-breast exams. A clinical breast exam by your physician is recommended on an annual basis. This exam should not preclude additional follow-up of suspicious palpable abnormalities. Note on Bess scores and lifetime risk: 1. A Bess score greater than 3% is considered moderate risk. If this is the case, consider specialist referral to assess eligibility for a risk reducing agent. 2. If overall lifetime risk for the development of breast cancer is 20% or higher, the patient may qualify for future screening with alternating mammogram and breast MRI. [facility], , 06/14/2024 9:52 AM. Electronically signed and approved by: Karsten Fenton M.D. Radiologis
== END | disposition home or self-care (01) ==
LOC: RADMAMWWP 09:20
PROVIDERS: ATTEND Surgery
DX: Z85.3 Personal history of malignant neoplasm of breast (principal); Z90.722 Acquired absence of ovaries, bilateral; Z78.0 Asymptomatic menopausal state; Z80.3 Family history of malignant neoplasm of breast; R92.333 Mammographic heterogeneous density, bilateral breasts
CPT/HCPCS: 77066; G0279; 77062

== ENCOUNTER → 2024-06-17 | Outpatient (CLI) | payer MEDICARE ==
[2024-06-17 10:58] VITALS: BP 130/79; PULSE 88; RESP 16; TEMP 97.9
--- NOTE | 2024-06-17 11:26 | P.PN ---
Subjective Progress Note Date: 06/17/24 Principal diagnosis: right breast IDC Aug 2023 Subjective Progress Note Date: 06-17-24 History of Present Illnes Chief Complaint: right breast invasive ductal cancer Alice is a 64 year old white female seen in consultation for Dr. Pastrana regarding a biopsy proven right breast cancer. She underwent a bilateral mammogram on 01-01-23 which was personally reviewed with DR. Sheffield. This showed a 2.4 cm mass with adjacent adenopathy on the right axillary region of the breast. She had a ultrasound confirming this on the same date. She had a core biopsy of the right axillary lesion and a node on 01-30-23. Pathology revealed an invasive ductal cancer, G2 ER+(91-100%), NH+ (61-70%), Her2-. She noted a lump in her right axilla since April 2020. She did not pursue that secondary to COVID at the time. She had never had surgery on her breast. She is not complaining of any trauma or infection of the breast. Patient had debbi-adjuvant hormone therapy anastrazole lumpectomy and SNB on 09-22-23 two foci of residual IDC, 2.5 and .7 cm, focal involvement of skeletl muscle and inferior margin three axillary nodes (+) tumor she had re-escision and no further tumor at inferior margin, and three additionsl nodes all (-). started radiation on 01-05-24 finished on 02-09-24 she is not complaining of any new lumps masses or nodules of concern in either breast. PET scan 02-28-2023 Concern regarding an ovarian mass, patient on June 29 underwent removal of this mass. There was no cancer. bilateral mammogram 06-14-24 BIRAD 2 note medical oncology 05-23-24 DR. Carnes presently on annestrazole and recommended to take verzenio, she had some GI complaints related to this and the dose was decreased, she decided not to take this She is not complaining of any new lumps masses or nodules of concern in either breast Caffiene: 1 cup.day nicotine: none chocolate: daily Family History: mother: breast cancer at 76 father: cancer ? type two brothers with prostate cancer paternal grandmother: tumor on her hip cancer Hormonal History: menarche: 12 G0 menopause: 48 hormones: none BCP: used them for about 6 years Surgical History: kidney stone removal of an ovarian cyst Medical History: skizophrenia (diagnosed since 31, lives independently) depression Social History: nicotine: none alcohol: occasional drugs: none - Constitutional Constitutional: Denies chills, Denies fever - EENT Eyes: denies blurred vision, denies pain Ears: deny: decreased hearing, tinnitus Ears, nose, mouth and throat: Denies headache, Denies sore throat - Breasts Breasts: bilateral: as per HPI - Cardiovascular Cardiovascular: Denies chest pain, Denies shortness of breath - Respiratory Respiratory: Denies cough - Gastrointestinal Gastrointestinal: Denies abdominal pain, Denies diarrhea, Denies nausea, Denies vomiting - Genitourinary (Female) Genitourinary: Reports kidney stones - Menstruation Menstruation: Reports postmenopausal - Musculoskeletal Musculoskeletal: Denies myalgias - Integumentary Comment: dry skin Integumentary: Denies pruritus, Denies rash - Neurological Neurological: Denies numbness, Denies weakness - Psychiatric Psychiatric: Reports as per HPI - Endocrine Endocrine: Reports fatigue, Denies weight change - Hematologic/Lymphatic Comment: none - Allergic/Immunologic Allergic/Immunologic: Reports seasonal allergies Past Medical History Past Medical History: No Reported History Additional Past Medical History / Comment(s): hx migraines, kidney stones History of Any Multi-Drug Resistant Organisms: None Reported Past Surgical History: No Surgical Hx Reported Additional Past Surgical History / Comment(s): cystoscopy with left stent 03/17/22 at [facility] Past Anesthesia/Blood Transfusion Reactions: No Reported Reaction Past Psychological History: Depression, Schizoaffective Disorder, Schizophrenia Smoking Status: Never smoker Past Alcohol Use History: None Reported Past Drug Use History: None Reported - Past Family History Mother Family Medical History: Cancer Father Family Medical History: Cancer Medications and Allergies Home Medications Medication Instructions Recorded Confirmed Type Benztropine Mesylate [Cogentin] 0.5 mg PO 1630 12/15/18 02/20/23 History Minocycline HCl [Minocin] 100 mg PO DAILY 12/15/18 02/20/23 History ARIPiprazole [Abilify] 20 mg PO 1630 04/09/22 02/20/23 History Albuterol Inhaler [Ventolin Hfa 1 puff INHALATION DIRECTED PRN 04/09/22 02/20/23 History Inhaler] traZODone HCL 100 mg PO 1630 04/09/22 02/20/23 History Cholecalciferol (Vitamin D3) 1,250 mcg PO DAILY 02/20/23 02/20/23 History [Vitamin D3] Allergies Allergy/AdvReac Type Severity Reaction Status Date / Time No Known Allergies Allergy Verified 02/20/23 09:36 Objective - Vital Signs Vital signs: Vital Signs Temp 97.9 F 06/17/24 10:56 Pulse 88 06/17/24 10:56 Resp 16 06/17/24 10:56 BP 130/79 06/17/24 10:56 Pulse Ox 100 06/17/24 10:56 FiO2 Intake & Output 06/16/24 06/17/24 06/17/24 18:59 06:59 18:59 Weight 53.977 kg - Constitutional General appearance: Present: cooperative - EENT Eyes: Present: EOMI ENT: Present: hearing grossly normal - Neck Neck: Present: normal ROM - Respiratory Respiratory: bilateral: CTA - Cardiovascular Rhythm: regular Heart sounds: normal: S1, S2 - Integumentary Integumentary: Present: normal turgor - Musculoskeletal Musculoskeletal: Present: gait normal - Psychiatric Psychiatric: Present: A&O x's 3, appropriate affect, intact judgment & insight - Additional findings Additional findings: Breast Exam: BRA: 34B Inspection: rash over the right chest wall and breast felt to be related to radiation changes resolved, right nipple inversion Left breast nipple grade 2 ptosis Palpation: Right breast: multiple positional exam well-healed scar breast and axilla no dominant masses or nodules of concern, the right nipple is inverted, there is some puckering of the medial aspect of the incision but no masses associated with this Right axilla: No axillary adenopathy of concern Left breast: Multiple positional exam fibrocystic changes no dominant masses or nodules of concern Left axilla: No adenopathy of concern Assessment and Plan Assessment: Impression: Right breast invasive ductal carcinoma with axillary node involvement, patient status post lumpectomy/axillary node resection/neoadjuvant hormone therapy/radiation therapy No evidence of recurrent cancer at this time Schizophrenia Plan: bilateral mammogram in one year with physician exam continue anastrozole Patient to follow up sooner if any questions or concerns Continue to follow with medical oncology Continue to follow with radiation oncology follow up in 6 months for exam CC: Dr. Pastrana
== END ==
LOC: WWCWWP 10:49
PROVIDERS: ATTEND Surgery
DX: Z48.817 Encounter for surgical aftercare following surgery on the skin and subcutaneous tissue (principal); C50.911 Malignant neoplasm of unspecified site of right female breast; F20.9 Schizophrenia, unspecified; Z17.0 Estrogen receptor positive status [ER+]; Z17.21 Progesterone receptor positive status; Z80.3 Family history of malignant neoplasm of breast